=== PATIENT | male | born 1970 | race African-American/Black ===

== ENCOUNTER 2019-04-08 14:25 | Emergency (ER) | payer MEDICAID ==
[~2019-04-08 14:25] MED LIST: ALBU8.5H5 INH; ALLO100T30 PO; AMIT150T PO; AMLO10TA4 PO; CHOL500015 PO; GABA600T7 PO; GLIP10TA13 PO; HYDR-3240 PO; IPRA4AER INH; LISI-170 PO; SIMV10TA3 PO
--- NOTE | 2019-04-08 14:35 | NUR ---
pt here for CP and had a syncope event. pt states he gets CP when his glucose level is high, FSBS FTA was 252, pt is a non compliant DM, hx of COPD, pt states he did a line of crystal a few days ago/a month ago, the story changes. last beer was this am. pt states his back hurts but that is also a chronic problem. labs drawn, ekg done. call light within reach. 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
[2019-04-08 15:00] LABS: BASOPHILS # (AUTO) 0.04 x10^3/uL (0-0.1); BASOPHILS % (AUTO) 1 % (0-1); EOSINOPHILS # (AUTO) 0.16 x10^3/uL (0-0.4); EOSINOPHILS % (AUTO) 2 % (1-7); LYMPHOCYTES # (AUTO) 2.46 x10^3/uL (1-3.4); LYMPHOCYTES % (AUTO) 35 % (22-44); MD NO; MEAN CORPUSCULAR HEMOGLOBIN 27.7 pg (27.5-34.5); MEAN CORPUSCULAR HGB CONC 32.2 g/dL (33.2-36.2); MEAN CORPUSCULAR VOLUME 85.9 fL (81-97); MEAN PLATELET VOLUME 11.4 fL (7.4-10.4); MONOCYTES # (AUTO) 0.66 x10^3/uL (0.2-0.8); MONOCYTES % (AUTO) 9 % (2-9); NEUTROPHILS # (AUTO) 3.76 x10^3/uL (1.8-6.8); NEUTROPHILS % (AUTO) 53 % (42-75); PLATELET COUNT 180 x10^3/uL (130-400); RED BLOOD COUNT 4.93 x10^6/uL (4.38-5.82); RED CELL DISTRIBUTION WIDTH 14.8 % (9.4-14.8)
[2019-04-08] MEDS ORDERED: SODIUM CHLORIDE FLUSH 10ML SYR IVF ONE (15:00)
[2019-04-08] MEDS ORDERED: PLEASE ENTER HEIGHT AND WEIGHT MC SCH (15:00)
[2019-04-08 15:08] LABS: ALANINE AMINOTRANSFERASE 23 U/L (12-78); ANION GAP 13 mmol/L (5-15); CALCIUM 8.7 mg/dL (8.5-10.1); CHLORIDE 110 mmol/L (98-107); CREATININE 1.16 mg/dL (0.7-1.3)
[2019-04-08 15:12] LABS: ALKALINE PHOSPHATASE 72 U/L (45-117); BILIRUBIN,TOTAL 0.4 mg/dL (0.2-1.0); TOTAL PROTEIN 6.9 g/dL (6.4-8.2); TROPONIN I < 0.015 ng/mL (0.000-0.045)
--- NOTE | 2019-04-08 15:19 | NUR ---
pt now resting on his side as his back hurts. called she is on her way to visit. pt covered with a sheet. call light within reach.
--- NOTE | 2019-04-08 15:50 | NUR ---
PT LAYING PARTIAL ON HIS LF SIDE SNORING, COVERED WITH A GOWN, CALL LIGHT ON BED. IVF STARTED.
[2019-04-08] MEDS ORDERED: SODIUM CHLORIDE 0.9% 1,000ML IVBOLUS ONE (16:00)
--- NOTE | 2019-04-08 16:39 | NUR ---
MD IN ROOM, PT CAN HAVE SOMETHING TO DRINK, FINISH IVF FLUIDS. PAIN 7/10 CP. CALL LIGHT WITH IN REACH. PT LAYING SUPINE.
[2019-04-08] MEDS ORDERED: KETOROLAC 30 MG/1 ML ONE (16:47)
--- NOTE | 2019-04-08 16:51 | NUR ---
PT RESTING ON HIS SIDE, GIVEN RX PAIN MEDS. PT FINISHED 2ND CUP OF H2O. CALL LIGHT ON BED.
[2019-04-08] MEDS ORDERED: KETOROLAC 30 MG/1 ML IVPush ONE (17:00)
--- NOTE | 2019-04-08 17:20 | NUR ---
PT LAYING ON HIS SIDE. WARM BLANKET GIVEN. CALL LIGHT WITH IN REACH.
--- NOTE | 2019-04-08 17:23 | NUR ---
report given to break ela patton/[facility]. pt care transfered.
--- NOTE | 2019-04-08 18:30 | NUR ---
WRITTEN & VERBAL DC INSTRUCTIONS PROVIDED TO PT. PT REQUESTING SCRIPT "FOR ALL MY MEDS". PT DOENS'T REMEMBER NAMES OF HIS MEDS. MED REC REVIEWED - NOT DONE BY PATEL, PRIMARY RN. EXTERNAL MED HX ACCESSED, MED REC UPDATED. DR MATTHEW GONE FOR THE DAY; WILL ASK ANOTHER ED PHYSICIAN ABOUT SCRIPTS.
[2019-04-08] MEDS ORDERED: INSU100I34 SQ (18:45)
[2019-04-08] MEDS ORDERED: AMIT50TA PO (18:45)
[2019-04-08] MEDS ORDERED: AMLO10TA8 PO (18:45)
[2019-04-08] MEDS ORDERED: PANT40TA5 PO (18:45)
[2019-04-08] MEDS ORDERED: GABA300C10 PO (18:45)
--- NOTE | 2019-04-08 18:49 | NUR ---
SCRIPT FOR INSULIN (BASAGLAR KWIK PEN) AND SYRINGES PROVIDED BY DR. GARCIA. SCRIPT WILL BE GIVEN TO PT.
[2019-04-08 18:54] VITALS: BP 129/86
== END 2019-04-08 18:57 | disposition home or self-care (01) ==
LOC: ED 15:25
DX: R55 Syncope and collapse (principal); I10 Essential (primary) hypertension; E11.9 Type 2 diabetes mellitus without complications; J44.9 Chronic obstructive pulmonary disease, unspecified; E78.5 Hyperlipidemia, unspecified
CPT/HCPCS: 36415; 71045; 80053; 84484; 85025; 93005; 96361; 96374; 99284; J1885; J7030

== ENCOUNTER 2019-04-16 11:51 | Emergency (ER) | payer MEDICAID ==
[~2019-04-16] VITALS: Ht 180.3 cm; Wt 165.0 kg
[2019-04-16 12:03] VITALS: BP 148/98
== END 2019-04-16 18:02 | disposition home or self-care (01) ==
LOC: ED 13:25
DX: F32.1 Major depressive disorder, single episode, moderate (principal); E11.65 Type 2 diabetes mellitus with hyperglycemia; J44.9 Chronic obstructive pulmonary disease, unspecified; E78.5 Hyperlipidemia, unspecified; F17.200 Nicotine dependence, unspecified, uncomplicated; M10.9 Gout, unspecified
CPT/HCPCS: 36415; 80053; 80307; 84443; 85025; 93005; 99284